=== PATIENT | male | born 1960 | race African-American/Black ===

== ENCOUNTER 2016-04-12 07:51 | Emergency (ER) | payer OTHER ==
[~2016-04-12] VITALS: Ht 185.4 cm; Wt 105.0 kg
[~2016-04-12 07:51] MED LIST: IBUP600T26 PO; ROBA750T3 PO
[2016-04-12 07:53] VITALS: BP 155/81; PULSE 64; RESP 16; TEMP 97.7; O2SAT 100
--- NOTE | 2016-04-12 09:00 | PD ---
HPI Chief Complaint: Pain: Acute or Chronic Time Seen by Provider: 08:57 Travel History International Travel<30 days: No Contact w/Intl Traveler<30days: No Traveled to known affect area: No History of Present Illness HPI 55-year-old male presents to the emergency department with complaint of a lump to his left upper back that has been there for over 5 years and requesting for her to be removed. He was previously evaluated at [facility] and was not told anything, according to the patient. He says the lump is painful and is aggravated when he lays on it, touches it, or makes certain movements. He denies fever, chills, nausea, vomiting. Denies focal deficits or weakness. Denies paresthesias, loss of sensation or decreased range of motion, decreased strength to all extremities. Has taken Tylenol for the pain with some relief. Primary care provider is Dr. Juárez. No known allergies. Denies significant past medical history. No other modifying factors or associated signs and symptoms. History Past Medical Histgory Hx Cancer: No Social History Alcohol Use: Yes (OCCASIONALLY) Tobacco Use: Yes (1 PPD) Allergies-Medications (Allergen,Severity, Reaction): Coded Allergies: No Known Allergies (Verified , 04/12/16) Reported Meds & Prescriptions Reported Meds & Active Scripts Active No Active Prescriptions or Reported Medications Review of Systems Except as stated in HPI: all other systems reviewed are Neg Physical Exam Narrative GENERAL: Well-nourished, well-developed male patient, in no acute distress; afebrile, nontoxic-appearing SKIN: Warm and dry. Left upper back with soft, tender, mass that measures approximately 5 cm in diameter; the areas without erythema, warmth to touch, or signs of infection. HEAD: Atraumatic. Normocephalic. EYES: Pupils equal and round. No scleral icterus. No injection or drainage. ENT: Mucosa pink and moist. Airway patent. NECK: Trachea midline. CARDIOVASCULAR: Regular rate. RESPIRATORY: No accessory muscle use. GASTROINTESTINAL: Rounded. MUSCULOSKELETAL: No obvious deformities. No clubbing. No cyanosis. No edema. NEUROLOGICAL: Awake and alert. Oriented 3. No obvious cranial nerve deficits. Motor grossly within normal limits. Normal speech. PSYCHIATRIC: Appropriate mood and affect; insight and judgment normal. Data Data Last Documented VS Vital Signs Date Time Temp Pulse Resp B/P Pulse Ox O2 Delivery O2 Flow Rate FiO2 04/12/16 07:53 97.7 64 16 155/81 100 Room Air MDM Medical Screen Exam Complete: Yes Emergency Medical Condition: No Differential Diagnosis Tumor, cellulitis, abscess, cyst Narrative Course 55-year-old male with a lump to his left mid back just below his scapula that has been there for over 5 years. Vital signs are stable and the patient is stable for outpatient follow-up and treatment. The patient has no urgent or emergent medical complaints. There is no emergent or urgent medical need at this time. I instructed the patient to follow up with their primary care provider. A medical screening exam was performed: At the time of evaluation the presenting medical condition was determined not to be of an emergent nature. The patient was given the option of receiving additional care, but declined. Patient was given options for additional community resources from which to obtain care. The Patient Has Been advised to seek medical attention for their presenting complaint. The patient has been advised to return to the ER at any time if an emergent condition develops. Primary Impression: Encounter for medical screening examination Scripts No Active Prescriptions or Reported Meds Condition: Stable Maryam Horne Apr 12, 2016 09:00
== END 2016-04-12 10:42 | disposition left against medical advice (07) ==
LOC: NEPB 07:51
DX: R22.2 Localized swelling, mass and lump, trunk (principal)
CPT/HCPCS: 99281

== ENCOUNTER 2016-09-12 07:22 | Emergency (ER) | payer OTHER ==
[~2016-09-12] VITALS: Ht 185.4 cm; Wt 110.0 kg
[2016-09-12 07:24] VITALS: BP 150/82; PULSE 54; RESP 16; TEMP 97.6; O2SAT 100
--- NOTE | 2016-09-12 07:40 | PD ---
HPI . left shoulder pain s/p fall Chief Complaint: Injury Time Seen by Provider: 07:39 Travel History International Travel<30 days: No Contact w/Intl Traveler<30days: No Traveled to known affect area: No History of Present Illness HPI 56 yr old male here with c/o left shoulder pain s/p fall yesterday. Patient now with c/o pain in his shoulder especially with movement. He denies any head injury of LOC. He rates pain as 9/10 without further radiation. PFSH Past Medical History Cancer: No Cardiovascular Problems: No High Cholesterol: Yes Cerebrovascular Accident: No Diabetes: No Diminished Hearing: No Endocrine: No Genitourinary: No Headaches: Yes Hepatitis: No Hiatal Hernia: No Immune Disorder: No Musculoskeletal: No Neurologic: No Psychiatric: No Respiratory: No Immunizations Current: Yes Myocardial Infarction: No Thyroid Disease: No Past Surgical History Abdominal Surgery: No AICD: No Body Medical Devices: N/A Cardiac Surgery: No Ear Surgery: No Endocrine Surgery: No Eye Surgery: No Genitourinary Surgery: No Joint Replacement: No Oral Surgery: Yes (FULL DENTURES) Pacemaker: No Thoracic Surgery: No Other Surgery: Yes (right hand) Social History Alcohol Use: Yes (OCCASIONALLY) Tobacco Use: Yes (1 PPD) Substance Use: No Allergies-Medications (Allergen,Severity, Reaction): Coded Allergies: No Known Allergies (Verified , 09/12/16) Reported Meds & Prescriptions Reported Meds & Active Scripts Active Ibuprofen 800 Mg Tab 800 Mg PO TID Flexeril (Cyclobenzaprine HCl) 5 Mg Tab 5 Mg PO TID Review of Systems General / Constitutional: No: Fever Eyes: No: Visual changes HENT: No: Headaches Cardiovascular: No: Chest Pain or Discomfort Respiratory: No: Shortness of Breath Gastrointestinal: No: Abdominal Pain Genitourinary: No: Dysuria Musculoskeletal: Positive: Pain (left shoulder pain ) Skin: No Rash Neurologic: No: Weakness Psychiatric: No: Depression Endocrine: No: Polydipsia Hematologic/Lymphatic: No: Easy Bruising Physical Exam Narrative GENERAL: AAO x 3, no acute distress, Well-nourished, well-developed patient. SKIN: Warm and dry. No visible rashes or bruising. HEAD: Normocephalic and atraumatic. EYES: No scleral icterus. No injection or drainage. ENT: No nasal drainage noted. Mucous membranes pink. Airway patent. NECK: Supple, trachea midline. No JVD. CARDIOVASCULAR: Regular rate and rhythm without murmurs, gallops, or rubs. RESPIRATORY: Breath sounds equal bilaterally. No accessory muscle use. No rhonchi or rales. GASTROINTESTINAL:visual inspection normal EXTREMITIES: No cyanosis or edema. limited ROM In left shoulder, pain elicited with internal and external rotation, no evidence of dislocation BACK: No obvious deformity. NEURO: CN II-12 intact, dry cleaner presser strength normal b/l, UE and LE 5/5, no focal deficits PSYCH: AAO x 3, normal affect. Data Data Last Documented VS Vital Signs Date Time Temp Pulse Resp B/P Pulse Ox O2 Delivery O2 Flow Rate FiO2 09/12/16 07:44 16 99 Room Air 09/12/16 07:24 97.6 54 150/82 Orders Shoulder, Complete (>2vws) (09/12/16 07:43) Ketorolac Inj (Toradol Inj) (09/12/16 07:45) MDM Medical Decision Making Medical Screen Exam Complete: Yes Emergency Medical Condition: Yes Medical Record Reviewed: Yes Differential Diagnosis rotator cuff injury, AC joint separation, less likely dislocation Narrative Course 56 yr old male here with c/o left shoulder pain. I think he may have slight rotator cuff injury rather than bony abnormality. Imaging ordered to r/o acute bony abn. Toradol in ED for pain control. Last Impressions Shoulder X-Ray 09/12/16 0743 Signed Impressions: Service Date/Time: Monday, September 12, 2016 08:32 - CONCLUSION: Unremarkable examination of the left shoulder. Denis Kilgore MD discussed normal results with patient, recommend f/u with PCP. Muscle relaxers and anti-inflammatories provided for discharge. Patient verbalized understanding of instructions, questions were answered, and thanked me for their care. I advised them if their condition worsens, please return to the nearest emergency room for further care. Diagnosis Primary Impression: Left shoulder pain Qualified Code: M25.512 - Acute pain of left shoulder Patient Instructions: General Instructions Additional Instructions: Muscle relaxers can cause drowsiness. Do not drive, swim or operate heavy machinery while using these medications. Please return to emergency department if your symptoms return or worsen. Follow up with your primary care provider. Take medications as prescribed. If your pain persists past 7-10 days, please follow-up with your primary care provider. Med/Other Pt SpecificInfo: Prescription(s) given Scripts Ibuprofen 800 Mg [id number] Mg PO TID #21 TAB Prov:Yael Fowler MD 09/12/16 Cyclobenzaprine (Flexeril)5 Mg Tab5 Mg PO TID #21 TAB Prov:Yael Fowler MD 09/12/16 Disposition: 01 DISCHARGE HOME Condition: Stable Priscilla Leahy Sep 12, 2016 07:40
[2016-09-12] MEDS ORDERED: KETOROLAC TROMETHAMINE 60 MG/2 ML (IM) VIAL IM ONE (07:45)
[2016-09-12] MEDS ORDERED: IBUP800T23 PO (08:45)
[2016-09-12] MEDS ORDERED: CYCL5TAB PO (08:45)
[2016-09-12 08:49] VITALS: RESP 17
--- NOTE | 2016-09-12 08:50 | RADRPT ---
EXAM DATE/TIME: 09/12/2016 08:32 [facility] COMPARISON: SHOULDER LEFT COMPLETE (>2VWS), June 26, 2015, 8:36. INDICATIONS : Fall. Left shoulder pain. MEDICAL HISTORY : None. SURGICAL HISTORY : None. ENCOUNTER: Initial ACUITY: 3 days PAIN SCORE: 7/10 LOCATION: Left shoulder FINDINGS: Multiple view examination of the left shoulder demonstrates no evidence of fracture or dislocation. The glenohumeral and acromioclavicular joints are maintained. There is normal range of motion betwee n internal and external rotation. Bony mineralization is normal. CONCLUSION: Unremarkable examination of the left shoulder. Denis Kilgore MD on September 12, 2016 at 8:48 Board Certified Radiologist. This report was verified electronically.
[2016-09-12 08:56] VITALS: BP 130/82; TEMP 97.8
== END 2016-09-12 09:03 | disposition home or self-care (01) ==
LOC: NEPK 07:22
DX: M25.512 Pain in left shoulder (principal); E78.00 Pure hypercholesterolemia, unspecified; F17.200 Nicotine dependence, unspecified, uncomplicated; W18.30XA Fall on same level, unspecified, initial encounter; Z79.899 Other long term (current) drug therapy
CPT/HCPCS: 73030; 96372; 99284; J1885